=== PATIENT | female | born 1990 | race Caucasian/White ===

== ENCOUNTER → 2020-03-16 09:36 | Outpatient (BNVA) | payer BC, SELFPAY | PROVIDERS: Family Provider Nurse Practitioner Family; PCP Registered Nurse; Visit Provider Registered Nurse | DX: F41.9 Anxiety disorder, unspecified (principal); F41.0 Panic disorder [episodic paroxysmal anxiety]; F43.0 Acute stress reaction; R00.2 Palpitations | CPT/HCPCS: 80053; 82306; 82607; 84432; 84443; 86376; 86800 ==

== ENCOUNTER → 2020-05-23 08:50 | Outpatient (BNVA) | payer BC, SELFPAY | PROVIDERS: Family Provider Nurse Practitioner Family; PCP Registered Nurse; Referring Provider Registered Nurse; Visit Provider Internal Medicine | DX: R79.89 Other specified abnormal findings of blood chemistry (principal); R23.8 Other skin changes; E66.9 Obesity, unspecified; Z68.31 Body mass index [BMI] 31.0-31.9, adult | CPT/HCPCS: 99204 ==

== ENCOUNTER → 2020-05-31 08:34 | Outpatient (BNVA) | payer BC, SELFPAY | PROVIDERS: Family Provider Nurse Practitioner Family; PCP Registered Nurse; Visit Provider Internal Medicine | DX: R23.8 Other skin changes (principal); R63.5 Abnormal weight gain; F41.0 Panic disorder [episodic paroxysmal anxiety]; F43.0 Acute stress reaction | CPT/HCPCS: 82533; 84439; 84480 ==

== ENCOUNTER → 2020-06-29 15:40 | Outpatient (BNVA) | payer BC, SELFPAY | PROVIDERS: Family Provider Nurse Practitioner Family; PCP Registered Nurse; Visit Provider Registered Nurse | DX: Z30.9 Encounter for contraceptive management, unspecified (principal) | CPT/HCPCS: 81025 ==

== ENCOUNTER 2020-07-13 10:08 | Outpatient (CLI) | payer BC, SELFPAY ==
[2020-07-17 12:47] LABS: IGF1 LC/MS 151 ng/mL (63-373)
[2020-07-19 13:53] LABS: Z Score (Female) -0.2 SD (-2.0 - +2.0)
== END 2020-07-13 10:09 | disposition home or self-care (01) ==
LOC: LAB 10:14
PROVIDERS: PCP Registered Nurse; Visit Provider Internal Medicine
DX: E27.40 Unspecified adrenocortical insufficiency (principal); F41.0 Panic disorder [episodic paroxysmal anxiety]; F41.8 Other specified anxiety disorders; F43.0 Acute stress reaction; R63.5 Abnormal weight gain
CPT/HCPCS: 36415; 83835; 84305

== ENCOUNTER → 2020-07-14 09:47 | Outpatient (BNVA) | payer BC, SELFPAY | PROVIDERS: PCP Registered Nurse; Visit Provider Internal Medicine | DX: E27.40 Unspecified adrenocortical insufficiency (principal); F41.8 Other specified anxiety disorders | CPT/HCPCS: 82530 ==